=== PATIENT | female | born 1995 | race Caucasian/White ===

== ENCOUNTER 2018-04-20 09:03 | Emergency (ER) | payer BC ==
[2018-04-20 09:47] LABS: Influenza A Molecular NEGATIVE (Negative); Influenza B Molecular NEGATIVE (Negative)
[2018-04-20 10:19] LABS: ABS Basophils 0 10^3/ul (0-0.2); ABS Eosinophils 0.2 10^3/ul (0-0.6); ABS Lymphocytes 1.1 10^3/ul (1.0-4.8); ABS Monocytes 1.1 10^3/ul (0-0.8); ABS Nucleated RBC 0 10^3/ul; Eosinophil % 1.9 %; Hematocrit 40 % (35-47); Hemoglobin 13.3 g/dl (12.0-16.0); Lymphocyte % 9.7 %; Mean Corpuscular HGB Conc 33 g/dl (31-36); Mean Corpuscular Hemoglobin 29 pg (27-31); Mean Corpuscular Volume 87 fL (80-97); Mean Platelet Volume 8.7 fL (7.4-10.4); Nucleated Red Blood Cells % 0; Platelet Count 205 10^3/ul (150-450); Red Blood Count 4.61 10^6/ul (4.00-5.40); Red Cell Distribution Width 13 % (10.5-15); White Blood Count 11.5 10^3/ul (3.5-10.8)
--- NOTE | 2018-04-20 10:49 | ED ---
Syncope/Near Syncope - HPI Summary HPI Summary: Patient is a 22 y/o F presenting to ED with complaints of gradual onset of chills, palpitations, sore throat, FERNANDEZ last night with an episode of nausea, vomiting, light-headedness and "passing out" today. Patient reports syncopal episode occurred in the shower, states she started feeling light-headed, was seeing spots, and then ended up on the floor. She denies head injury. Abdominal pain is denied. In room, sore throat has resolved, still feels light-headed. Patient claims that she has not been keeping hydrated. Patient has IUD. No PMHx is reported. No PSHx. Patient reports cat allergy. She notes rare alcohol usage , denies smoking cigarettes, recreational drug usage. On triage, pain is denied , nothing is noted to aggravate/alleviate Sx. Home medications and allergies are reviewed. - History Of Current Complaint Chief Complaint: EDSyncope Time Seen by Provider: 04/20/18 10:28 Hx Obtained From: Patient Onset/Duration: Gradual Onset, Lasting Days - chills, palpitations, sore throat , FERNANDEZ last night, Still Present - light-headed, Resolved - sore throat, syncope Timing: Intermittent Episode Lasting - episode of vomiting, light-headedness and "passing out" today Context: Unwitnessed - in shower Activity At Onset: Other - in shower Associated Head Trauma: No Aggravating Factor(s): Nothing Alleviating Factor(s): Nothing Associated Signs And Symptoms: Headache, Lightheadedness, Vomiting, Other - seeing spots, nausea, chills, sore throat, no abdominal pain - Allergies/Home Medications Allergies/Adverse Reactions: Allergies Allergy/AdvReac Type Severity Reaction Status Date / Time No Known Allergies Allergy Verified 04/20/18 09:08 Home Medications: Home Medications lamoTRIgine [Lamictal] 100 mg PO DAILY 04/20/18 [History Confirmed 04/20/18] PMH/Surg Hx/FS Hx/Imm Hx Sensory History: Denies: Hx Legally Blind, Hx Deafness Opthamlomology History: Denies: Hx Legally Blind EENT History: Denies: Hx Deafness - Surgical History Surgery Procedure, Year, and Place: 04/20/18 - patient reports no PSHx on this date Infectious Disease History: No Infectious Disease History: Denies: Traveled Outside the [place] in Last 30 Days - Family History Known Family History: Positive: Diabetes - grandfather Negative: Hypertension - Social History Alcohol Use: Rare Substance Use Type: Reports: None Smoking Status (MU): Never Smoked Tobacco Review of Systems Positive: Chills Positive: Blurred Vision - SEEING SPOTS Positive: Sore Throat Positive: Palpitations Positive: Vomiting, Nausea. Negative: Abdominal Pain Neurological: Other - POSITIVE - LIGHT-HEADEDNESS; NEGATIVE - HEAD INJURY Positive: Headache, Syncope All Other Systems Reviewed And Are Negative: Yes Physical Exam - Summary Physical Exam Summary: GENERAL: Patient is a well-developed and nourished female who is lying comfortable in the stretcher. Patient is not in any acute respiratory distress. HEAD AND FACE: Normocephalic EYES: PERRLA, EOMI x 2. EARS: Hearing grossly intact. MOUTH: Oropharynx within normal limits. Pharyngeal erythema, no exudates. Chapped oral mucosa. NECK: Supple, trachea is midline, no adenopathy, no JVD, no carotid bruit. CHEST: Symmetric, no tenderness at palpation LUNGS: Clear to auscultation bilaterally. No wheezing or crackles. CVS: Regular rate and rhythm, S1 and S2 present, no murmurs or gallops appreciated. ABDOMEN: Soft, non-tender. Bowel sounds are normal. No abdominal abnormal pulsations. EXTREMITIES: Full ROM in all major joints, no edema, no cyanosis or clubbing. NEURO: Alert and oriented x 3. No acute neurological deficits. Speech is normal and follows commands. Triage Information Reviewed: Yes Vital Signs On Initial Exam: Initial Vitals Temp Pulse Resp BP Pulse Ox 97 F 98 16 129/95 98 04/20/18 09:05 04/20/18 09:05 04/20/18 09:05 04/20/18 09:05 04/20/18 09:05 Vital Signs Reviewed: Yes Diagnostics - Vital Signs Vital Signs Temp Pulse Resp BP Pulse Ox 04/20/18 09:05 97 F 98 16 129/95 98 - Laboratory Lab Results: Lab Results 04/20/18 04/20/18 04/20/18 Range/Units 09:34 09:36 10:13 WBC 11.5 H (3.5-10.8) 10^3/ul RBC 4.61 (4.00-5.40) 10^6/ul Hgb 13.3 (12.0-16.0) g/dl Hct 40 (35-47) % MCV 87 (80-97) fL MCH 29 (27-31) pg MCHC 33 (31-36) g/dl RDW 13 (10.5-15) % Plt Count 205 (150-450) 10^3/ul MPV 8.7 (7.4-10.4) fL Neut % (Auto) 78.5 % Lymph % (Auto) 9.7 % Stokes % (Auto) 9.6 % Eos % (Auto) 1.9 % Baso % (Auto) 0.3 % Absolute Neuts (auto) 9.0 H (1.5-7.7) 10^3/ul Absolute Lymphs (auto) 1.1 (1.0-4.8) 10^3/ul Absolute Monos (auto) 1.1 H (0-0.8) 10^3/ul Absolute Eos (auto) 0.2 (0-0.6) 10^3/ul Absolute Basos (auto) 0 (0-0.2) 10^3/ul Absolute Nucleated RBC 0 10^3/ul Nucleated RBC % 0 Lactic Acid (0.5-2.0) mmol/L Influenza A (Rapid) Negative (Negative) Influenza B (Rapid) Negative (Negative) Group A Strep Rapid Negative (Negative) 04/20/18 Range/Units 10:13 WBC (3.5-10.8) 10^3/ul RBC (4.00-5.40) 10^6/ul Hgb (12.0-16.0) g/dl Hct (35-47) % MCV (80-97) fL MCH (27-31) pg MCHC (31-36) g/dl RDW (10.5-15) % Plt Count (150-450) 10^3/ul MPV (7.4-10.4) fL Neut % (Auto) % Lymph % (Auto) % Stokes % (Auto) % Eos % (Auto) % Baso % (Auto) % Absolute Neuts (auto) (1.5-7.7) 10^3/ul Absolute Lymphs (auto) (1.0-4.8) 10^3/ul Absolute Monos (auto) (0-0.8) 10^3/ul Absolute Eos (auto) (0-0.6) 10^3/ul Absolute Basos (auto) (0-0.2) 10^3/ul Absolute Nucleated RBC 10^3/ul Nucleated RBC % Lactic Acid 1.4 (0.5-2.0) mmol/L Influenza A (Rapid) (Negative) Influenza B (Rapid) (Negative) Group A Strep Rapid (Negative) Result Diagrams: 04/20/18 10:13 04/20/18 10:13 Lab Statement: Any lab studies that have been ordered have been reviewed, and results considered in the medical decision making process. - EKG 0930 Cardiac Rate: NL - rate of 81 BPM EKG Rhythm: Sinus Rhythm Summary of EKG Findings: EKG showed sinus rhythm with rate of 81 BPM, normal intervals, no ischemic changes. Re-Evaluation - Re-Evaluation First Eval Re-Evaluation Time: 12:26 Change: Improved Comment: I discussed results with patient and patient reports feeling better. Patient is hemodynamically stable and safe for discharge. Strict return precautions given and patient will otherwise follow up with PCP. Course/Dx Assessment/Plan: Patient is a 22 y/o F presenting to ED with complaints of gradual onset of chills, palpitations, sore throat, FERNANDEZ last night with an episode of nausea, vomiting, light-headedness and "passing out" today. Patient reports syncopal episode occurred in the shower, states she started feeling light-headed, was seeing spots, and then ended up on the floor. She denies head injury. Abdominal pain is denied. In room, sore throat has resolved, still feels light-headed. Patient claims that she has not been keeping hydrated. Patient has IUD. No PMHx is reported. No PSHx. Patient reports cat allergy. She notes rare alcohol usage, denies smoking cigarettes, recreational drug usage. On physical exam, chapped oral mucosa is noted, patient has pharyngeal erythema but no exudate. EKG showed sinus rhythm with rate of 81 BPM, normal intervals, no ischemic changes. Labs showed WBC 11.5, absolute neuts 9, absolute monos 1.1 , TSH 1.6, beta HCG < 0.6. UA showed urine with cloudy vikki appearance, 2+ protein, 1+ WBC, squamous cells present, no ketones, nitrate, glucose, bacteria. Monoscreen, Influenza A, B and group A strep rapid were negative. During ED course, patient received Reglan 10 mg IV, fluids. I discussed results with patient and patient reports feeling better. Patient is hemodynamically stable and safe for discharge. Strict return precautions given and patient will otherwise follow up with PCP. - Diagnoses Provider Diagnoses: Syncope Discharge - Sign-Out/Discharge Documenting (check all that apply): Patient Departure - discharge Patient Received Moderate/Deep Sedation with Procedure: No - NO PROCEDURES DONE - Discharge Plan Condition: Stable Disposition: HOME Patient Education Materials: Syncope (ED) Referrals: Care [facility] [Outside] - 3 Days Additional Instructions: Follow up with your primary care physician in 1-3 days. RETURN TO THE EMERGENCY DEPARTMENT FOR CHANGING OR WORSENING SYMPTOMS. - Billing Disposition and Condition Condition: STABLE Disposition: Home - Attestation Statements Document Initiated by Scribe: Yes Documenting Scribe: ALIZE LYNN Provider For Whom Scribe is Documenting (Include Credential): GERBER VERDUZCO MD Scribe Attestation: I, ALIZE LYNN, scribed for GERBER VERDUZCO MD on 04/20/18 at 2122. Scribe Documentation Reviewed: Yes Provider Attestation: The documentation as recorded by the ALIZE albert accurately reflects the service I personally performed and the decisions made by me, GERBER VERDUZCO MD Status of Scribe Document: Viewed
[2018-04-20 11:01] LABS: ALT 12 U/L (7-52); AST 19 U/L (13-39); Albumin 4.5 g/dL (3.2-5.2); Albumin/Globulin Ratio 1.6 (1-3); Alkaline Phosphatase 75 U/L (34-104); Anion Gap 8 mmol/L (2-11); BUN/Creatinine Ratio 15.9 (8-20); Blood Urea Nitrogen 10 mg/dL (6-24); CO2 Carbon Dioxide 25 mmol/L (22-32); Calcium 9.4 mg/dL (8.6-10.3); Chloride 103 mmol/L (101-111); EGFR African American 145.8 (>60); EGFR Non-African American 120.5 (>60); Globulin 2.8 g/dL (2-4); Glucose 83 mg/dL (70-100); Magnesium 1.9 mg/dL (1.9-2.7); Potassium 3.6 mmol/L (3.5-5.0); Sodium 136 mmol/L (135-145); Total Protein 7.3 g/dL (6.4-8.9)
[2018-04-20] MEDS ORDERED: Metoclopramide IV* 5 MG/ML 2 ML VIAL IV ONE (11:04)
[2018-04-20] MEDS ORDERED: NS 0.9% 1000 ML** 1,000 ML IV ONE (11:04)
[2018-04-20 11:21] LABS: TSH (Thyroid Stimulating Horm) 0.65 mcIU/mL (0.34-5.60)
[2018-04-20 11:22] LABS: HCG Pregnancy < 0.60 mIU/mL
[2018-04-20 11:37] LABS: Urine Appearance Cloudy; Urine Bacteria Absent (Absent); Urine Bilirubin Negative (Negative); Urine Blood Negative (Negative); Urine Color Amber; Urine Glucose Negative (Negative); Urine Ketones Negative (Negative); Urine Nitrite Negative (Negative); Urine Protein 2+(100 mg/dL) (Negative); Urine Red Blood Cell Absent (Absent); Urine Specific Gravity 1.026 (1.010-1.030); Urine Squamous Epithelial Cell Present (Absent); Urine Urobilinogen Negative (Negative); Urine White Blood Cell 1+(6-10/hpf) (Absent)
[2018-04-20 12:48] VITALS: BP 97/54
== END 2018-04-20 12:47 | disposition home or self-care (01) ==
LOC: ED 09:03
DX: R55 Syncope and collapse (principal)
CPT/HCPCS: 36415; 80053; 81003; 81015; 83605; 83735; 84443; 84702; 85025; 86308; 87086; 87651; 93005; 96360; 96361; 99283; J2765